=== PATIENT | female | born 1960 ===

== ENCOUNTER 2024-09-28 11:13 | Inpatient (IN) | payer BC, OTHER ==
[2024-09-28] MEDS ORDERED: Aspirin Chewable 81 MG TAB ONE (11:35)
[2024-09-28 11:43] LABS: Actual Bicarbonate (HCO3v) 26.2 mEq/L (22-28); Analyzer IN Cardio ER; Base Excess 2.3 mEq/L (-2.0 to +3.0); Calcium, Ionized (venous) 1.09 mmol/L (1.16-1.32); Chloride (VBG) 103 mmol/L (98-106); Hematocrit-VBG 29 % (36.0-47.0); Hemoglobin (Hb) 9.7 g/dL (11.7-16.0); Potassium (VBG) 3.42 mmol/L (3.70-5.30); Sodium 142 mmol/L (133-146); pH (venous) 7.457 (7.32-7.43)
[2024-09-28 11:57] LABS: Hematocrit 32.3 % (36.0-47.0); Hemoglobin 8.9 g/dL (12.0-16.0); Mean Corpuscular HGB CONC 27.6 g/dL (32.0-36.0); Mean Corpuscular Hemoglobin 17.9 pg (27.0-31.0); Mean Corpuscular Volume 65.1 fL (78.0-98.0); Mean Platelet Volume 9.6 fL (7.4-10.4); Platelet Count 434 10x3/uL (130-400); RBC Distribution Width 19.4 % (11.5-14.5); Red Blood Cell (RBC) Count 4.96 mill/uL (4.20-5.40)
[2024-09-28] MEDS ORDERED: Albuterol 2.5 MG (0.5 mL) NEB ONE (12:15)
[2024-09-28] MEDS ORDERED: Albuterol 2.5 MG (3 mL) NEB ONE (12:15)
[2024-09-28 12:19] LABS: ALT (SGPT) 13 U/L (8-55); AST (SGOT) 22 U/L (5-34); Albumin 3.7 g/dL (3.4-4.8); Alkaline Phosphatase 57 U/L (40-110); Anion Gap 17 mmol/L (10-20); BUN (Urea Nitrogen) 22 mg/dL (9.8-20.1); Bilirubin, Total 0.4 mg/dL (0.2-1.2); Calc. Creatinine Clearance 0 mL/min (70-130); Calcium 9.2 mg/dL (7.8-10.44); Carbon Dioxide 22 mmol/L (23-31); Chloride 104 mmol/L (98-107); Estimated GFR 57; Globulin 4.2 g/dL (2.4-3.5); Glucose 124 mg/dL (80-115); Potassium 3.3 mmol/L (3.5-5.1); Protein, Total 7.9 g/dL (5.8-8.1); Sodium 140 mmol/L (136-145)
[2024-09-28 12:29] LABS: Hypochromia SLIGHT = 6-15 cells HPF (0-5); Platelet Adequacy Comment Platelets Increased; Polychromasia SLIGHT = 2-3 cells HPF (0-2); Target Cells SLIGHT = 2-5 cells HPF (0-1)
[2024-09-28 12:45] LABS: Troponin I 0.468 ng/mL (< 0.028)
[2024-09-28] MEDS ORDERED: Sodium Chloride 0.9% 100 ML ONE (12:48)
[2024-09-28] MEDS ORDERED: Furosemide 20 MG (2 mL) VIAL ONE (12:48)
[2024-09-28] MEDS ORDERED: cefTRIAXone (ROCEPHIN) 2 GM VIAL ONE (12:48)
[2024-09-28] MEDS ORDERED: Azithromycin 250 MG TAB ONE (13:01)
[2024-09-28] MEDS ORDERED: Enoxaparin 100 MG (1 mL) SYRINGE ONE (13:04)
[2024-09-28] MEDS: Furosemide 40 MG (4 mL) VIAL SLOW IVP SCH (14:58)
[2024-09-28] MEDS: hydrALAZINE 25 MG TAB PO SCH (14:58)
[2024-09-28] MEDS: Potassium Chloride 20 MEQ in Premix 1 BAG IVPB SCH (15:06)
[2024-09-28] MEDS: Carvedilol 25 MG TAB PO SCH (16:23)
[2024-09-28] MEDS ORDERED: Carvedilol 6.25 MG TAB PO SCH (17:00)
[2024-09-28 18:23] VITALS: BMI 29.3
[2024-09-28] MEDS: Amitriptyline HCl 10 MG TAB PO SCH (21:15)
[2024-09-28] MEDS: Pramipexole Di-HCl 0.25 MG TAB PO PRN (21:24)
[2024-09-29 04:01] LABS: Ferritin 13.69 ng/mL (10-291); Thyroid Stimulating Hormone 0.6321 uIU/mL (0.35-4.94)
[2024-09-29 04:05] LABS: #Basophils Less than 0.03 10x3/uL (0.0-0.2); #Eosinophils Less than 0.03 10x3/uL (0.0-0.7); %Basophils 0.2 % (0.0-1.0); %Eosinophils 0.2 % (0.0-10.0); %Lymphocytes 17.9 % (21.0-51.0); %Monocytes 8.3 % (0.0-10.0); %Neutrophils 73.2 % (42.0-75.0); Hematocrit 28.7 % (36.0-47.0); Hemoglobin 8.1 g/dL (12.0-16.0); Mean Corpuscular HGB CONC 28.2 g/dL (32.0-36.0); Mean Corpuscular Hemoglobin 17.7 pg (27.0-31.0); Mean Corpuscular Volume 62.7 fL (78.0-98.0); Mean Platelet Volume 10.1 fL (7.4-10.4); Platelet Count 435 10x3/uL (130-400); RBC Distribution Width 18.9 % (11.5-14.5); Red Blood Cell (RBC) Count 4.58 mill/uL (4.20-5.40)
[2024-09-29 05:33] LABS: Albumin 3.1 g/dL (3.4-4.8); Anion Gap 17 mmol/L (10-20); BUN (Urea Nitrogen) 26 mg/dL (9.8-20.1); Bilirubin, Total 0.2 mg/dL (0.2-1.2); Calc. Creatinine Clearance 74 mL/min (70-130); Calcium 8.9 mg/dL (7.6-10.4); Carbon Dioxide 25 mmol/L (23-31); Chloride 100 mmol/L (98-107); Estimated GFR 65; Globulin 3.7 g/dL (2.4-3.5); Glucose 99 mg/dL (80-115); Potassium 3.2 mmol/L (3.5-5.1); Protein, Total 6.8 g/dL (5.8-8.1); Sodium 139 mmol/L (136-145)
[2024-09-29 05:34] LABS: ALT (SGPT) 12 U/L (8-55); AST (SGOT) 23 U/L (5-34); Alkaline Phosphatase 48 U/L (40-110); Iron 16 ug/dL (50-170)
[2024-09-29 05:46] LABS: Iron Binding Capacity, Total 618 mcg/dL (265-497)
[2024-09-29] MEDS: Fenofibrate Nanocrystallized 145 MG TAB PO SCH (08:23)
[2024-09-29] MEDS: Potassium Chloride 20 MEQ TAB PO SCH (08:23)
[2024-09-29] MEDS: Empagliflozin 10 MG TAB PO SCH (08:24)
[2024-09-29] MEDS: Aspirin 81 mg Enteric Coated Tablet PO SCH ×2 (10:23→10:32)
[2024-09-29 11:51] LABS: Troponin I 0.763 ng/mL (< 0.028)
[2024-09-29] MEDS: Pantoprazole 40 MG VIAL IVP SCH (14:37)
[2024-09-29] MEDS: Nitroglycerin 2% Ointment 1 INCH/1 GM Packet TOP SCH (20:41)
[2024-09-29] MEDS: Acetaminophen 325 MG TAB PO PRN (20:43)
[2024-09-30 04:36] LABS: Anion Gap 17 mmol/L (10-20); BUN (Urea Nitrogen) 29 mg/dL (9.8-20.1); Calc. Creatinine Clearance 73 mL/min (70-130); Calcium 9.3 mg/dL (7.8-10.44); Carbon Dioxide 23 mmol/L (23-31); Cardiac Risk 3.8 (Less than 4.5); Chloride 96 mmol/L (98-107); Cholesterol 172 mg/dl (< 200 Desired); Estimated GFR 59; Glucose 94 mg/dL (80-115); HDL Cholesterol 45 mg/dL (>60 Neg Risk); LDL Cholesterol, Calculated 85 mg/dL; Potassium 4.2 mmol/L (3.5-5.1); Sodium 132 mmol/L (136-145); Triglycerides 210 mg/dL (Less than 150)
[2024-09-30 05:05] LABS: #Basophils Less than 0.03 10x3/uL (0.0-0.2); %Basophils 0.4 % (0.0-1.0); %Eosinophils 0.6 % (0.0-10.0); %Lymphocytes 27.4 % (21.0-51.0); %Monocytes 8.1 % (0.0-10.0); %Neutrophils 63.3 % (42.0-75.0); Hematocrit 31.6 % (36.0-47.0); Hemoglobin 8.8 g/dL (12.0-16.0); Mean Corpuscular HGB CONC 27.8 g/dL (32.0-36.0); Mean Corpuscular Hemoglobin 17.5 pg (27.0-31.0); Mean Corpuscular Volume 62.9 fL (78.0-98.0); Mean Platelet Volume 10.6 fL (7.4-10.4); Platelet Count 430 10x3/uL (130-400); RBC Distribution Width 19.2 % (11.5-14.5); Red Blood Cell (RBC) Count 5.02 mill/uL (4.20-5.40)
[2024-09-30 06:31] LABS: Hypochromia MODERATE=16-30 cells HPF (0-5); Microcytosis SLIGHT = 6-15 cells HPF (0-5); Platelet Adequacy Comment Platelets Normal; Polychromasia SLIGHT = 2-3 cells HPF (0-2)
[2024-09-30] MEDS ORDERED: Lidocaine 1% PF 5 ML VIAL ONE ×2 (08:23→09:28)
[2024-09-30] MEDS ORDERED: PROPOFOL 20 ML ONE ×2 (08:23→09:35)
[2024-09-30] MEDS ORDERED: Etomidate 40 MG (20 mL) VIAL ONE (09:23)
[2024-09-30] MEDS ORDERED: PHENYLEPHRINE-NS 100 MCG/ML 10 ML SYRINGE ONE (09:35)
[2024-09-30] MEDS: Ezetimibe 10 MG TAB PO SCH (11:36)
[2024-09-30] MEDS: Clopidogrel Bisulfate 75 MG TAB PO SCH (11:37)
[2024-09-30] MEDS: Pantoprazole 40 MG VIAL IVP SCH (11:37)
[2024-09-30] MEDS ORDERED: Communication Order-Pharmacy FS SCH (17:15)
[2024-10-01 03:43] LABS: #Basophils 0.03 10x3/uL (0.0-0.2); %Basophils 0.6 % (0.0-1.0); %Lymphocytes 30.6 % (21.0-51.0); %Monocytes 7.4 % (0.0-10.0); %Neutrophils 60.4 % (42.0-75.0); Hematocrit 33.6 % (36.0-47.0); Hemoglobin 9.4 g/dL (12.0-16.0); Mean Corpuscular Hemoglobin 17.6 pg (27.0-31.0); Mean Corpuscular Volume 62.9 fL (78.0-98.0); Mean Platelet Volume 9.4 fL (7.4-10.4); Platelet Count 494 10x3/uL (130-400); RBC Distribution Width 19.3 % (11.5-14.5); Red Blood Cell (RBC) Count 5.34 mill/uL (4.20-5.40)
[2024-10-01 03:46] LABS: Anion Gap 16 mmol/L (10-20); BUN (Urea Nitrogen) 29 mg/dL (9.8-20.1); Calc. Creatinine Clearance 67 mL/min (70-130); Calcium 9.3 mg/dL (7.8-10.44); Carbon Dioxide 27 mmol/L (23-31); Chloride 96 mmol/L (98-107); Estimated GFR 54; Glucose 103 mg/dL (80-115); Potassium 3.7 mmol/L (3.5-5.1); Sodium 135 mmol/L (136-145)
[2024-10-01] MEDS ORDERED: Nitroglycerin 0.4 MG TAB (25 Tab Bottle) SL PRN (07:09)
[2024-10-01] MEDS: Ferrous Sulfate 325 MG TAB PO SCH (08:24)
[2024-10-01] MEDS: Furosemide 20 MG TAB PO SCH (08:24)
[2024-10-01] MEDS: Pantoprazole DR 40 MG TAB PO SCH (08:24)
[2024-10-01] MEDS: Nitroglycerin 2% Ointment 1 INCH/1 GM Packet TOP SCH (08:25)
[2024-10-02 03:52] LABS: #Basophils Less than 0.03 10x3/uL (0.0-0.2); %Basophils 0.3 % (0.0-1.0); %Eosinophils 1.2 % (0.0-10.0); %Monocytes 8.3 % (0.0-10.0); Hematocrit 33.4 % (36.0-47.0); Hemoglobin 9.3 g/dL (12.0-16.0); Mean Corpuscular HGB CONC 27.8 g/dL (32.0-36.0); Mean Corpuscular Hemoglobin 17.6 pg (27.0-31.0); Mean Corpuscular Volume 63.4 fL (78.0-98.0); Mean Platelet Volume 9.7 fL (7.4-10.4); Platelet Count 536 10x3/uL (130-400); RBC Distribution Width 19.3 % (11.5-14.5); Red Blood Cell (RBC) Count 5.27 mill/uL (4.20-5.40)
[2024-10-02 04:14] LABS: Anisocytosis SLIGHT = 6-15 cells HPF (0-5); Hypochromia SLIGHT = 6-15 cells HPF (0-5); Microcytosis SLIGHT = 6-15 cells HPF (0-5); Platelet Adequacy Comment Platelets Increased; Polychromasia SLIGHT = 2-3 cells HPF (0-2)
[2024-10-02 04:16] LABS: Anion Gap 16 mmol/L (10-20); BUN (Urea Nitrogen) 35 mg/dL (9.8-20.1); Calc. Creatinine Clearance 61 mL/min (70-130); Calcium 9.5 mg/dL (7.8-10.44); Carbon Dioxide 27 mmol/L (23-31); Chloride 95 mmol/L (98-107); Estimated GFR 49; Glucose 113 mg/dL (80-115); Potassium 3.4 mmol/L (3.5-5.1); Sodium 135 mmol/L (136-145)
[2024-10-02] MEDS: Sodium Chloride 0.9% 1,000 ML IV SCH ×2 (05:54→10:33)
[2024-10-02] MEDS ORDERED: Midazolam HCl 2 mg/2 ml Vial ONE (06:16)
[2024-10-02] MEDS ORDERED: fentaNYL 50 mcg/mL 1 mL Vial ONE ×2 (06:16→08:14)
[2024-10-02] MEDS ORDERED: Nitroglycerin 50 MG/250 ML BOT 0 ML ONE (06:17)
[2024-10-02] MEDS ORDERED: Heparin 10,000 UNITS/ 10 ML VIAL ONE (06:17)
[2024-10-02] MEDS ORDERED: PHENYLEPHRINE-NS 100 MCG/ML 10 ML SYRINGE ONE (07:31)
[2024-10-02] MEDS ORDERED: Protamine Sulfate 50 MG/5 ML VIAL ONE (08:39)
[2024-10-02] MEDS ORDERED: Sodium Chloride 0.9% 200 ML IV PRN (09:08)
[2024-10-02] MEDS ORDERED: Nitroglycerin 0.4 MG TAB (25 Tab Bottle) SL PRN (09:08)
[2024-10-02] MEDS: Isosorbide Mononitrate 60 MG ER.TAB PO SCH (10:28)
[2024-10-02] MEDS: Clopidogrel Bisulfate 300 MG TAB PO SCH (10:28)
[2024-10-02] MEDS: Acetaminophen/Codeine 30-300mg Tablet PO PRN ×2 (11:46→17:16)
[2024-10-02] MEDS ORDERED: Iopamidol 370 76% 100 ML VIAL ONE (14:36)
[2024-10-02] MEDS ORDERED: FLU (Fluarix Triv) TS24-25(6MOS UP)/PF 45 MCG/0.5 ML Syringe IM ONE (18:00)
[2024-10-03 04:58] LABS: #Basophils Less than 0.03 10x3/uL (0.0-0.2); %Basophils 0.4 % (0.0-1.0); %Eosinophils 1.2 % (0.0-10.0); %Monocytes 6.9 % (0.0-10.0); %Neutrophils 67.1 % (42.0-75.0); Hemoglobin 8.1 g/dL (12.0-16.0); Mean Corpuscular HGB CONC 27.9 g/dL (32.0-36.0); Mean Corpuscular Hemoglobin 17.8 pg (27.0-31.0); Mean Corpuscular Volume 63.6 fL (78.0-98.0); Mean Platelet Volume 9.9 fL (7.4-10.4); Platelet Count 453 10x3/uL (130-400); RBC Distribution Width 18.9 % (11.5-14.5); Red Blood Cell (RBC) Count 4.56 mill/uL (4.20-5.40)
[2024-10-03 05:16] LABS: Anion Gap 13 mmol/L (10-20); BUN (Urea Nitrogen) 25 mg/dL (9.8-20.1); Calc. Creatinine Clearance 88 mL/min (70-130); Calcium 8.9 mg/dL (7.8-10.44); Carbon Dioxide 27 mmol/L (23-31); Chloride 101 mmol/L (98-107); Estimated GFR 68; Glucose 97 mg/dL (80-115); Potassium 3.6 mmol/L (3.5-5.1); Sodium 137 mmol/L (136-145)
[2024-10-03] MEDS: Clopidogrel Bisulfate 75 MG TAB PO SCH (08:50)
[2024-10-03] MEDS: Isosorbide Mononitrate 60 MG ER.TAB PO SCH (08:51)
[2024-10-03 13:05] VITALS: BP 103/51; TEMP 98
== END 2024-10-03 15:20 | disposition home or self-care (01) | DRG 280 ==
LOC: ERS 11:13 → IMCU/EMU 14:14 → OBS 10-02 16:37
PROVIDERS: ADMIT Hospitalist; ATTEND Internal Medicine
PROC: 4A023N7 Measurement of Cardiac Sampling and Pressure, Left Heart, Percutaneous Approach (ICD-10-PCS; principal; 2024-09-28)
PROC: B2151ZZ Fluoroscopy of Left Heart using Low Osmolar Contrast (ICD-10-PCS; 2024-09-28)
PROC: B2111ZZ Fluoroscopy of Multiple Coronary Arteries using Low Osmolar Contrast (ICD-10-PCS; 2024-09-28)
PROC: 0DB68ZX Excision of Stomach, Via Natural or Artificial Opening Endoscopic, Diagnostic (ICD-10-PCS; 2024-09-30)
DX: I11.0 Hypertensive heart disease with heart failure (principal); I50.33 Acute on chronic diastolic (congestive) heart failure; I21.4 Non-ST elevation (NSTEMI) myocardial infarction; J96.01 Acute respiratory failure with hypoxia; J44.1 Chronic obstructive pulmonary disease with (acute) exacerbation; I25.10 Atherosclerotic heart disease of native coronary artery without angina pectoris; E11.9 Type 2 diabetes mellitus without complications; E78.5 Hyperlipidemia, unspecified; Z91.040 Latex allergy status; Z90.49 Acquired absence of other specified parts of digestive tract; Z98.890 Other specified postprocedural states; E87.6 Hypokalemia; G25.81 Restless legs syndrome; Z79.82 Long term (current) use of aspirin; Z79.899 Other long term (current) drug therapy; I35.0 Nonrheumatic aortic (valve) stenosis; Z87.891 Personal history of nicotine dependence; D50.9 Iron deficiency anemia, unspecified; K29.70 Gastritis, unspecified, without bleeding
CPT/HCPCS: 36415; 36416; 71045; 80048; 80053; 80061; 82728; 82805; 83540; 83550; 83880; 84443; 84484; 85025; 85347; 86850; 86900; 86901; 87040; 88305; 93005; 93010; 93306; 93460; 93798; 94640; 94660; 96365; 96372; 96375; 99152; 99153; C1769; C1894; J0696; J1644; J1650; J1940; J2250; J2470; J2704; J2720; J3010; J3480; J7030; J7611; Q9967